=== PATIENT | male | born 1960 | race Caucasian/White ===

== ENCOUNTER 2016-11-26 08:02 | Emergency (ER) | payer MEDICAID, OTHER, SELFPAY ==
[2016-11-26 09:10] LABS: MEAN CORPUSCULAR HGB CONC 35.7 g/dl (32.0-36.5); MEAN CORPUSCULAR VOLUME 86.7 fl (80.0-96.0); RED CELL DISTRIBUTION WIDTH 12.4 % (11.5-14.5); WHITE BLOOD COUNT 8.2 K/mm3 (4.0-10.0)
[2016-11-26 09:51] LABS: ALBUMIN 4.2 GM/DL (3.2-5.2); ALBUMIN/GLOBULIN RATIO 1.27 (1.00-1.93); ALKALINE PHOSPHATASE 107 U/L (45-117); ALT/SGPT 62 U/L (12-78); ANION GAP 9 MEQ/L (8-16); AST/SGOT 26 U/L (15-37); BILIRUBIN,DIRECT 0.2 MG/DL (0.0-0.2); BILIRUBIN,TOTAL 0.8 MG/DL (0.2-1.0); BLOOD UREA NITROGEN 20 MG/DL (7-18); CALCIUM LEVEL 8.8 MG/DL (8.5-10.1); CARBON DIOXIDE LEVEL 23 MEQ/L (21-32); CHLORIDE LEVEL 109 MEQ/L (98-107); CREATININE FOR GFR 1.12 MG/DL (0.70-1.30); GLOMERULAR FILTRATION RATE > 60.0 (>56); GLUCOSE, FASTING 96 MG/DL (70-105); POTASSIUM SERUM 4.3 MEQ/L (3.5-5.1); SODIUM LEVEL 141 MEQ/L (136-145); TOTAL PROTEIN 7.5 GM/DL (6.4-8.2)
--- NOTE | 2016-11-26 11:24 | EDDOCDS ---
Physician Documentation [facility] Name: Jas Wilkerson Age: 56 yrs Sex: Male : 1960 Arrival Date: 11/26/2016 Time: 08:02 Bed 12 Private MD: Leslie Chan A Disposition: 11/26/16 10:57 Discharged to Home/Self Care. Impression: Anxiety disorder, unspecified, Weakness. - Condition is Stable. - Discharge Instructions: Fatigue, Generalized Anxiety Disorder, Weakness, [id number]. - Prescriptions for Xanax 0.5 mg Oral Tablet - take 1 tablet by ORAL route at bedtime As needed MDD: 3 tabs; 10 tablet. - Medication Reconciliation, Local Pharmacy Hours form. - Follow up: Leslie Chan; When: 1 - 2 days. Follow up: Ry Dodd MD; When: 4 - 5 days. - Problem is new. - Symptoms are unchanged. - Notes: follow up wiht blade dodd and rosey; please follow up with numbers given to you by Zainab. return if worsening symptoms Historical: - Allergies: no known allergies; - Home Meds: 1. metoprolol tartrate 25 mg Oral tab 1 tab 2 times per day (Last dose: 11/25/2016 20:00) 2. losartan 50 mg oral tab 1 tab 2 times per day (Last dose: 11/25/2016 20:00) 3. spironolactone 50 mg Oral tab 1 tab once daily (Last dose: 11/25/2016 08:00) - PMHx: Hypertension; - PSHx: none; - Social history: Smoking status: Patient states former smoker of tobacco. No barriers to communication noted, Speaks appropriately for age. - Family history: Not pertinent. - : The pt / caregiver states he / she is not on anticoagulants. Home medication list is obtained from the patient. - Exposure Risk Screening:: None identified. Vital Signs: 11/26 08:11 BP 145 / 83; Pulse 66; Resp 18; Temp 98.(TE); Pulse Ox 98% on R/A; Weight 117.93 kg / ml6 259.99 lbs (R); Height 6 ft. (182.88 cm); Pain 0/10; 09:30 Pulse 58 MON; Pulse Ox 96% ; kc3 09:31 BP 137 / 83 (auto/); kc3 10:02 BP 135 / 71 (auto/); kc3 10:03 Pulse 68 MON; Pulse Ox 95% ; kc3 10:31 BP 135 / 92 (auto/); kc3 10:32 Pulse 62 MON; Pulse Ox 97% ; kc3 11:21 BP 147 / 94; Pulse 62; Resp 18; Temp 97.7(O); Pulse Ox 95% on R/A; Pain 0/10; kc3 08:11 Body Mass Index 35.26 (117.93 kg, 182.88 cm) ml6 MDM: 08:24 Consult PFS/PSA/Digital Marketing Program Manager ordered. ml 08:24 Consult PFS/PSA/Digital Marketing Program Manager: Patient's case requires discussion with on-call ml Psychiatrist ordered. 08:24 PSA/PFS to call Nursing Assembler [employer] [place], to enter patient data on [place] Safe Act if patient ml involuntarily admitted or transferred for SI or HI ordered. 08:24 Videogame Tester/Pulse Ox/q 15 min VS ordered. ml 08:24 Confirm accurate psychiatric medication list and times of last dosage ordered. ml 08:24 Detain Pt Until Medically/PFS Cleared ordered. ml 08:24 IV Saline Lock ordered. ml 08:24 Rhythm Strip to chart ordered. ml 08:25 Acetaminophen Level Ordered. EDMS 08:25 Basic Metabolic Profile Ordered. EDMS 08:25 Complete Blood Count Ordered. EDMS 08:25 Ethyl Alcohol (ethanol) Ordered. EDMS 08:25 Liver Profile Ordered. EDMS 08:25 Salicylate Level Ordered. EDMS 08:25 Thyroid Stimulating Hormone Ordered. EDMS 08:25 ECG WITH READING ER PHYS+CARDIAG ordered. EDMS 08:27 Financial registration complete. mm15 08:34 CIP Ordered. EDMS 08:34 Troponin Ordered. EDMS 08:58 [facility] Payment Agreement was scanned into [employer] and attached to record. mm15 09:09 Consult PFS/PSA/Digital Marketing Program Manager: Patient's case requires discussion with on-call richard Psychiatrist complete. 10:05 Acetaminophen Level Reviewed. ml 10:05 Basic Metabolic Profile Reviewed. ml 10:05 Salicylate Level Reviewed. ml 10:05 Complete Blood Count Reviewed. ml 10:05 Ethyl Alcohol (ethanol) Reviewed. ml 10:05 Liver Profile Reviewed. ml 10:05 Thyroid Stimulating Hormone Reviewed. ml 10:05 CIP Reviewed. ml 10:05 Troponin Reviewed. ml 10:32 Consult PFS/PSA/Digital Marketing Program Manager complete. ca 11:13 PSA/PFS to call Nursing Assembler [place], to enter patient data on [place] Safe Act if patient kc3 involuntarily admitted or transferred for SI or HI complete. Signatures: Dispatcher [employer] EDMS Mayuri Aly MD MD ml Lars Singh,RN RN Marion Lay, PSA PSA ca Danilo Altamirano, RN RN ml6 Melissa Brewster mm15 Pamela Wilcox,IDALIA RN kc3 The chart was reviewed and I authenticate all verbal orders and agree with the evaluation and treatment provided.Corrections: (The following items were deleted from the chart) 10:46 08:25 DRUG EVAL TOXICOLOGY ED ONLY+LAB ordered. EDWA EDMS Attachments: 08:58 [facility] Payment Agreement mm15 MTDD
--- NOTE | 2016-11-26 11:24 | EDDOCDS ---
Nurse's Notes [facility] Name: Jsa Wilkerson Age: 56 yrs Sex: Male : 1960 Arrival Date: 11/26/2016 Time: 08:02 Bed 12 Private MD: Leslie Chan A Diagnosis: Anxiety disorder, unspecified;Weakness Presentation: 11/26 08:06 Presenting complaint: Patient states: states that he was seen at [place] ED for ? panic ml6 attack and started on spironolactone, losartan, and metoprolol, patient states also F/U with Dr. Tobias, stats continues to feel fatigued having trouble sleeping. Adult Sepsis Screening: Patient has new or worsening altered mentation (1 point). Patient's respiratory rate is less than 22. Systolic blood pressure is greater than 100. Patient has a qSOFA score of 0- Negative Sepsis Screen. Suicide/Homicide risk assessment- the patient denies having any suicidal and/or homicidal ideations and does not present with any other emotional, behavioral or mental health complaints. Status: Patient is not a service girl or dependent. Transition of care: patient was not received from another setting of care. 08:06 Acuity: URIAH Level 3 ml6 08:06 Method Of Arrival: Walkin/Carried/Asstd ml6 Triage Assessment: 08:11 General: Appears in no apparent distress, Behavior is appropriate for age, cooperative. ml6 Pain: Denies pain. HIV screening NA for this visit Offered previously. Neurological: Level of Consciousness is awake, alert, Oriented to person, place, time, Gear Keeper are equal bilaterally Moves all extremities. Gait is unsteady, Speech is normal, Facial symmetry appears normal, Pupils are PERRLA. Cardiovascular: No deficits noted. Capillary refill < 3 seconds is brisk in bilateral fingers toes. Respiratory: No deficits noted. Airway is patent Respiratory effort is even, unlabored. Historical: - Allergies: no known allergies; - Home Meds: 1. metoprolol tartrate 25 mg Oral tab 1 tab 2 times per day (Last dose: 11/25/2016 20:00) 2. losartan 50 mg oral tab 1 tab 2 times per day (Last dose: 11/25/2016 20:00) 3. spironolactone 50 mg Oral tab 1 tab once daily (Last dose: 11/25/2016 08:00) - PMHx: Hypertension; - PSHx: none; - Social history: Smoking status: Patient states former smoker of tobacco. No barriers to communication noted, Speaks appropriately for age. - Family history: Not pertinent. - : The pt / caregiver states he / she is not on anticoagulants. Home medication list is obtained from the patient. - Exposure Risk Screening:: None identified. Screenin:06 Screening information is obtained from the patient. Fall risk: No risks identified. jmk Assistance ADL's: requires no assistance with activities of daily living. Abuse/DV Screen: The patient / caregiver reports he/she is: not in a situation that causes fear, pain or injury. Nutritional screening: No deficits noted. Advance Directives: Currently, there is a health care proxy, graham deluna, daughter. Advance Directives: There is no active DNR order. There is no living will. There is no Power of Child Life Assistant. Advance directive information has not previously been placed in an [facility] medical record. home support is adequate. Assessment: 08:55 General: Appears skin warm and dry color satisfactory. moist pink oral mucosa. diffuse jmk weakness. strength is equal bilaterally. PALMA readilly.. 09:04 Neurological: No deficits noted. Level of Consciousness is awake, alert, Oriented to [facility] person, place, time. Cardiovascular: Capillary refill < 3 seconds Clubbing of nail beds is absent JVD is absent Heart tones S1 S2 present Rhythm is regular. Respiratory: No deficits noted. Airway is patent Respiratory effort is even, unlabored, Respiratory pattern is regular, Breath sounds are clear bilaterally. GI: Abdomen is flat, non- distended Bowel sounds present X 4 quads. 09:44 General: Appears in no apparent distress, Behavior is flat. Neurological: Level of kc3 Consciousness is awake, alert, obeys commands, Oriented to person, place, time. Cardiovascular: Rhythm is regular. Cardiovascular: Rhythm is sinus rhythm No ectopy. Respiratory: Respiratory effort is even, unlabored, Respiratory pattern is regular, symmetrical. Derm: Skin is pink, warm & dry. 10:03 General: This RN asked pt if feeling suicidal. Pt reported "I just feel depressed about kc3 life with all this stuff going on and I just don't care anymore. Just asking the question to myself of "what if . . ." Pt updated on plan of care. No complaints at this time. . 11:20 General: Appears in no apparent distress, comfortable, Behavior is appropriate for age, kc3 flat. Pain: Denies pain. Neurological: Level of Consciousness is awake, alert, obeys commands, Oriented to person, place, time. Cardiovascular: Rhythm is sinus rhythm. Respiratory: Respiratory effort is even, unlabored. Derm: Skin is pink, warm & dry. Social Work Consult: 10:38 Social Work Note: Pr was recently dx with cardiac problem and is seeing Dr Nelson at [facility]. Pt's PCP is Leslie Chan in [place]. Pt was recently started on several meds and has been feeling unwell, tired, not himself. Pt has no psychiatric hx. Denies SI, HI, A/VH. Denies any admissions to or any attempts at self harm. Pt states he has been feeling tired and dizzy since starting 3 new meds very recently. Encouraged pt to consult with his primary and corporate human resources manager. Also spoke with pt's daughter privately. She also expresses no concerns about pt and denies he has made any statements about harming self. She confirms that his lethargy seems to have started with the new medications. Pt says he has a stable home life, plenty of supportive family and a SO with whom pt resides. Provided pt with referral info for counseling services to help with stressors if he desires. At present, pt does not wish counseling. If discharged today his daughter will accompany him home. Vital Signs: 08:11 BP 145 / 83; Pulse 66; Resp 18; Temp 98.(TE); Pulse Ox 98% on R/A; Weight 117.93 kg ml6 (R); Height 6 ft. (182.88 cm); Pain 0/10; 09:30 Pulse 58 MON; Pulse Ox 96% ; kc3 09:31 BP 137 / 83 (auto/); kc3 10:02 BP 135 / 71 (auto/); kc3 10:03 Pulse 68 MON; Pulse Ox 95% ; kc3 10:31 BP 135 / 92 (auto/); kc3 10:32 Pulse 62 MON; Pulse Ox 97% ; kc3 11:21 BP 147 / 94; Pulse 62; Resp 18; Temp 97.7(O); Pulse Ox 95% on R/A; Pain 0/10; kc3 08:11 Body Mass Index 35.26 (117.93 kg, 182.88 cm) ml6 Vitals: 08:11 Log In Time: November 26, 2016 at 08:00. ml6 ED Course: 08:03 Patient visited by Breanna Arthur Reg. lg 08:03 Leslie Chan is Private Physician. lg 08:03 Patient name changed from Jas\\S\\\\S\\Wilkerson\\S\\ to Jas\\S\\ \\S\\Wilkerson. EDMS 08:03 Patient moved to Waiting lg 08:08 Triage Initiated ml6 08:12 Patient moved to 12 ml6 08:13 Mayuri Aly MD is Attending Physician. ml 08:13 Patient visited by Mayuri Aly MD. ml 08:58 [facility] Payment Agreement was scanned into [employer] and attached to record. mm15 09:06 The patient / caregiver is instructed regarding the plan of care and ED course. Cardiac jmk monitor on. Pulse ox on. 09:06 Inserted saline lock: 20 gauge in right antecubital area. jmk 09:08 Troponin Sent. jmk 09:08 CIP Sent. jmk 09:08 Acetaminophen Level Sent. jmk 09:08 Basic Metabolic Profile Sent. jmk 09:15 Patient visited by Trina Coleman PCA. ct3 09:34 Pamela Wilcox,RN is Primary Nurse. kc3 09:46 Patient visited by Pamela Wilcox,RN. kc3 10:05 Patient visited by Pamela Wilcox,RN. kc3 10:47 Patient visited by Nina Doan PCA. jlf 10:57 Leslie Chan is Referral Physician. ml 10:57 Ry Tobias MD is Referral Physician. ml 11:22 Discontinued IV lock intact, bleeding controlled, pressure dressing applied, No kc3 redness/swelling at site. No procedures done that require assistance. Order Results: Lab Order: Acetaminophen Level; SPEC'M 11/26/16 09:02 Test: ACETAMINOPHEN LEVEL; Value: < 2.0; Range: 10.0-30.0; Abnormal: Below low normal; Units: UG/ML; Status: F Lab Order: Basic Metabolic Profile; SPEC'M 11/26/16 09:02 Test: GLUCOSE, FASTING; Value: 96; Range: 70-105; Units: MG/DL; Status: F Test: BLOOD UREA NITROGEN; Value: 20; Range: 7-18; Abnormal: Above high normal; Units: MG/DL; Status: F Test: CREATININE FOR GFR; Value: 1.12; Range: 0.70-1.30; Units: MG/DL; Status: F Test: GLOMERULAR FILTRATION RATE; Value: > 60.0; Range: >56; Status: F Test: SODIUM LEVEL; Value: 141; Range: 136-145; Units: MEQ/L; Status: F Test: POTASSIUM SERUM; Value: 4.3; Range: 3.5-5.1; Units: MEQ/L; Status: F Test: CHLORIDE LEVEL; Value: 109; Range: 98-107; Abnormal: Above high normal; Units: MEQ/L; Status: F Test: CARBON DIOXIDE LEVEL; Value: 23; Range: 21-32; Units: MEQ/L; Status: F Test: ANION GAP; Value: 9; Range: 8-16; Units: MEQ/L; Status: F Test: CALCIUM LEVEL; Value: 8.8; Range: 8.5-10.1; Units: MG/DL; Status: F Test Note: ; Units are mL/min/1.73 m2 Chronic Kidney Disease Staging per NKF: Stage I & II GFR >=60 Normal to Mildly Decreased Stage III GFR 30-59 Moderately Decreased Stage IV GFR 15-29 Severely Decreased Stage V GFR <15 Very Little GFR Left ESRD GFR <15 on GARDE MANGER Lab Order: Complete Blood Count; SPEC'M 11/26/16 09:02 Test: WHITE BLOOD COUNT; Value: 8.2; Range: 4.0-10.0; Units: K/mm3; Status: F Test: RED BLOOD COUNT; Value: 5.19; Range: 4.30-6.10; Units: M/mm3; Status: F Test: HEMOGLOBIN; Value: 16.1; Range: 14.0-18.0; Units: g/dl; Status: F Test: HEMATOCRIT; Value: 45.0; Range: 42.0-52.0; Units: %; Status: F Test: MEAN CORPUSCULAR VOLUME; Value: 86.7; Range: 80.0-96.0; Units: fl; Status: F Test: MEAN CORPUSCULAR HEMOGLOBIN; Value: 31.0; Range: 27.0-33.0; Units: pg; Status: F Test: MEAN CORPUSCULAR HGB CONC; Value: 35.7; Range: 32.0-36.5; Units: g/dl; Status: F Test: RED CELL DISTRIBUTION WIDTH; Value: 12.4; Range: 11.5-14.5; Units: %; Status: F Test: PLATELET COUNT, AUTOMATED; Value: 241; Range: 150-450; Units: k/mm3; Status: F Lab Order: Ethyl Alcohol (ethanol); 11/26/16 09: Test: ETHYL ALCOHOL (ETHANOL); Value: < 0.003; Range: 0.000-0.010; Units: %; Status: F Lab Order: Liver Profile; 11/26/16 09: Test: AST/SGOT; Value: 26; Range: 15-37; Units: U/L; Status: F Test: ALT/SGPT; Value: 62; Range: 12-78; Units: U/L; Status: F Test: ALKALINE PHOSPHATASE; Value: 107; Range: 45-117; Units: U/L; Status: F Test: BILIRUBIN,TOTAL; Value: 0.8; Range: 0.2-1.0; Units: MG/DL; Status: F Test: BILIRUBIN,DIRECT; Value: 0.2; Range: 0.0-0.2; Units: MG/DL; Status: F Test: TOTAL PROTEIN; Value: 7.5; Range: 6.4-8.2; Units: GM/DL; Status: F Test: ALBUMIN; Value: 4.2; Range: 3.2-5.2; Units: GM/DL; Status: F Test: ALBUMIN/GLOBULIN RATIO; Value: 1.27; Range: 1.00-1.93; Status: F Lab Order: Salicylate Level; 11/26/16 09:02 Test: SALICYLATE LEVEL; Value: < 1.7; Range: 5.0-30.0; Abnormal: Below low normal; Units: MG/DL; Status: F Lab Order: Thyroid Stimulating Hormone; 11/26/16 09:02 Test: THYROID STIMULATING HORMONE; Value: 0.733; Range: 0.358-3.740; Units: uIU/ML; Status: F Lab Order: CIP; DIEGO11/26/16 08:51 Test: CPK CREATINE PHOSPHOKINASE; Value: 75; Range: 39-308; Units: U/L; Status: F Test: CK-MB VALUE MASS; Value: 1.6; Range: 0.0-3.6; Units: NG/ML; Status: F Test: MB/CK RELATIVE INDEX; Value: 2.13; Range: < OR =4; Status: F Test Note: ; DIAGNOSIS CRITERIA MMB ng/ml Relative Index (RI) NON-AMI < or = 5 N/A [place]ES ZONE > 5 < or = 4 AMI > 5 > 4 Lab Order: Troponin; 11/26/16 08:51 Test: TROPONIN I; Value: < 0.02; Range: < 0.10; Units: NG/ML; Status: F Test Note: ; Troponin I Reference Interval for Zirtual LOCI: 99th Percentile= 0.00-0.045 ng/ml Risk Stratification: <= 0.10 ng/ml Decreased Risk for Adverse Clinical Events. 0.10-1.50 ng/ml Increased Risk for Adverse Clinical Events. Evaluation of additional criterion and/or repeat testing in 2-6 hours is suggested to rule out myocardial damage. >= 1.50 ng/ml Indicative of Myocardial Injury. Outcome: 10:57 Discharge ordered by Provider. 11:21 Discharge Assessment: Patient awake, alert and oriented x 3. No cognitive and/or kc3 functional deficits noted. Patient verbalized understanding of disposition instructions. patient administered narcotics - no. The following High Risk Discharge criteria are identified: None. Discharged to home ambulatory. Condition: stable. Discharge instructions given to patient, Instructed on discharge instructions, follow up and referral plans. medication usage, Demonstrated understanding of instructions, medications, Pt was receptive of discharge instructions/ teaching. Prescriptions given X 1. No special radiology studies were completed. Property :Personal belongings accompany Pt. 11:22 Patient left the ED. kc3 Signatures: Dispatcher [employer] EDMS Mayuri Aly MD MD ml Knapp, Jean, RN RN Marion Lay, PSA PSA ca Breanna Arthur, Reg Reg lg Adarsh, Danilo, RN RN ml6 [place], Trina, RAWHIDE TRIMMER RAWHIDE TRIMMER ct3 Melissa Brewster mm15 Nina Doan, RAWHIDE TRIMMER RAWHIDE TRIMMER jlf Brenden,Pamela,RN RN kc3 MTDD
--- NOTE | 2016-11-26 17:28 | ECGEPIP ---
Stationary ECG Study [facility] - ED Test Date: 2016-11-26 Pat Name: STEFANIE SNOW Department: Room: - Gender: M Hot Man: bridget : 1960 Requested By: Mayuri Aly Order Number: [id number] Reading MD: Valdemar Tobin Measurements Intervals [place] Rate: 60 P: 40 MI: 178 QRS: 31 QRSD: 116 T: 3 QT: 372 QTc: 373 Interpretive Statements SINUS RHYTHM INFERIOR MYOCARDIAL INFARCTION, PROBABLY OLD NONSPECIFIC T WAVE Abnormality NO PRIORS Electronically Signed On 11-26-2016 17:27:59 EST by Valdemar Tobin
--- NOTE | 2016-11-28 12:23 | EDDOCDS ---
Nurse's Notes [facility] Name: Jas Wilkerson Age: 56 yrs Sex: Male : 1960 Arrival Date: 11/26/2016 Time: 08:02 Bed 12 Private MD: Leslie Chan A Diagnosis: Anxiety disorder, unspecified;Weakness Presentation: 11/26 08:06 Presenting complaint: Patient states: states that he was seen at [facility] for ? panic ml6 attack and started on spironolactone, losartan, and metoprolol, patient states also F/U with Dr. Tobais, stats continues to feel fatigued having trouble sleeping. Adult Sepsis Screening: Patient has new or worsening altered mentation (1 point). Patient's respiratory rate is less than 22. Systolic blood pressure is greater than 100. Patient has a qSOFA score of 0- Negative Sepsis Screen. Suicide/Homicide risk assessment- the patient denies having any suicidal and/or homicidal ideations and does not present with any other emotional, behavioral or mental health complaints. Status: Patient is not a product manager financial services or dependent. Transition of care: patient was not received from another setting of care. 08:06 Acuity: URIAH Level 3 ml6 08:06 Method Of Arrival: Walkin/Carried/Asstd ml6 Triage Assessment: 08:11 General: Appears in no apparent distress, Behavior is appropriate for age, cooperative. ml6 Pain: Denies pain. HIV screening NA for this visit Offered previously. Neurological: Level of Consciousness is awake, alert, Oriented to person, place, time, Hydropress Operator are equal bilaterally Moves all extremities. Gait is unsteady, Speech is normal, Facial symmetry appears normal, Pupils are PERRLA. Cardiovascular: No deficits noted. Capillary refill < 3 seconds is brisk in bilateral fingers toes. Respiratory: No deficits noted. Airway is patent Respiratory effort is even, unlabored. Historical: - Allergies: no known allergies; - Home Meds: 1. metoprolol tartrate 25 mg Oral tab 1 tab 2 times per day (Last dose: 11/25/2016 20:00) 2. losartan 50 mg oral tab 1 tab 2 times per day (Last dose: 11/25/2016 20:00) 3. spironolactone 50 mg Oral tab 1 tab once daily (Last dose: 11/25/2016 08:00) - PMHx: Hypertension; - PSHx: none; - Social history: Smoking status: Patient states former smoker of tobacco. No barriers to communication noted, Speaks appropriately for age. - Family history: Not pertinent. - : The pt / caregiver states he / she is not on anticoagulants. Home medication list is obtained from the patient. - Exposure Risk Screening:: None identified. Screenin:06 Screening information is obtained from the patient. Fall risk: No risks identified. jmk Assistance ADL's: requires no assistance with activities of daily living. Abuse/DV Screen: The patient / caregiver reports he/she is: not in a situation that causes fear, pain or injury. Nutritional screening: No deficits noted. Advance Directives: Currently, there is a health care proxy, graham deluna, daughter. Advance Directives: There is no active DNR order. There is no living will. There is no Power of Senior Mobile Application Developer. Advance directive information has not previously been placed in an [facility] medical record. home support is adequate. Assessment: 08:55 General: Appears skin warm and dry color satisfactory. moist pink oral mucosa. diffuse jmk weakness. strength is equal bilaterally. PALMA readilly.. 09:04 Neurological: No deficits noted. Level of Consciousness is awake, alert, Oriented to [facility] person, place, time. Cardiovascular: Capillary refill < 3 seconds Clubbing of nail beds is absent JVD is absent Heart tones S1 S2 present Rhythm is regular. Respiratory: No deficits noted. Airway is patent Respiratory effort is even, unlabored, Respiratory pattern is regular, Breath sounds are clear bilaterally. GI: Abdomen is flat, non- distended Bowel sounds present X 4 quads. 09:44 General: Appears in no apparent distress, Behavior is flat. Neurological: Level of kc3 Consciousness is awake, alert, obeys commands, Oriented to person, place, time. Cardiovascular: Rhythm is regular. Cardiovascular: Rhythm is sinus rhythm No ectopy. Respiratory: Respiratory effort is even, unlabored, Respiratory pattern is regular, symmetrical. Derm: Skin is pink, warm & dry. 10:03 General: This RN asked pt if feeling suicidal. Pt reported "I just feel depressed about kc3 life with all this stuff going on and I just don't care anymore. Just asking the question to myself of "what if . . ." Pt updated on plan of care. No complaints at this time. . 11:20 General: Appears in no apparent distress, comfortable, Behavior is appropriate for age, kc3 flat. Pain: Denies pain. Neurological: Level of Consciousness is awake, alert, obeys commands, Oriented to person, place, time. Cardiovascular: Rhythm is sinus rhythm. Respiratory: Respiratory effort is even, unlabored. Derm: Skin is pink, warm & dry. Social Work Consult: 10:38 Social Work Note: Pr was recently dx with cardiac problem and is seeing Dr Nelson at [facility]. Pt's PCP is Leslie Chan in [place]. Pt was recently started on several meds and has been feeling unwell, tired, not himself. Pt has no psychiatric hx. Denies SI, HI, A/VH. Denies any admissions to or any attempts at self harm. Pt states he has been feeling tired and dizzy since starting 3 new meds very recently. Encouraged pt to consult with his primary and acid loader. Also spoke with pt's daughter privately. She also expresses no concerns about pt and denies he has made any statements about harming self. She confirms that his lethargy seems to have started with the new medications. Pt says he has a stable home life, plenty of supportive family and a SO with whom pt resides. Provided pt with referral info for counseling services to help with stressors if he desires. At present, pt does not wish counseling. If discharged today his daughter will accompany him home. Vital Signs: 08:11 BP 145 / 83; Pulse 66; Resp 18; Temp 98.(TE); Pulse Ox 98% on R/A; Weight 117.93 kg ml6 (R); Height 6 ft. (182.88 cm); Pain 0/10; 09:30 Pulse 58 MON; Pulse Ox 96% ; kc3 09:31 BP 137 / 83 (auto/); kc3 10:02 BP 135 / 71 (auto/); kc3 10:03 Pulse 68 MON; Pulse Ox 95% ; kc3 10:31 BP 135 / 92 (auto/); kc3 10:32 Pulse 62 MON; Pulse Ox 97% ; kc3 11:21 BP 147 / 94; Pulse 62; Resp 18; Temp 97.7(O); Pulse Ox 95% on R/A; Pain 0/10; kc3 08:11 Body Mass Index 35.26 (117.93 kg, 182.88 cm) ml6 Vitals: 08:11 Log In Time: November 26, 2016 at 08:00. ml6 ED Course: 08:03 Patient visited by Breanna Arthur Reg. lg 08:03 Leslie Chan is Private Physician. lg 08:03 Patient name changed from Jas\\S\\\\S\\Wilkerson\\S\\ to Jas\\S\\ \\S\\Wilkerson. EDMS 08:03 Patient moved to Waiting lg 08:08 Triage Initiated ml6 08:12 Patient moved to 12 ml6 08:13 Mayuri Aly MD is Attending Physician. ml 08:13 Patient visited by Mayuri Aly MD. ml 08:58 [facility] Payment Agreement was scanned into [employer] and attached to record. mm15 09:06 The patient / caregiver is instructed regarding the plan of care and ED course. Cardiac jmk monitor on. Pulse ox on. 09:06 Inserted saline lock: 20 gauge in right antecubital area. jmk 09:08 Troponin Sent. jmk 09:08 CIP Sent. jmk 09:08 Acetaminophen Level Sent. jmk 09:08 Basic Metabolic Profile Sent. jmk 09:15 Patient visited by Trina Coleman PCA. ct3 09:34 Pamela Wilcox,RN is Primary Nurse. kc3 09:46 Patient visited by Pamela Wilcox,RN. kc3 10:05 Patient visited by Pamela Wilcox,RN. kc3 10:47 Patient visited by Nina Doan PCA. jlf 10:57 Leslie Chan is Referral Physician. ml 10:57 Ry Tobias MD is Referral Physician. ml 11:22 Discontinued IV lock intact, bleeding controlled, pressure dressing applied, No kc3 redness/swelling at site. No procedures done that require assistance. 14:29 ECG/EKG was scanned into [employer] and attached to record. gb 17:50 EKG-ADULT Returned. EDMS 11/27 12:44 T-Sheet-- Draft Copy was scanned into [employer] and attached to record. gb Order Results: Lab Order: Acetaminophen Level; SPEC'M 11/26/16 09:02 Test: ACETAMINOPHEN LEVEL; Value: < 2.0; Range: 10.0-30.0; Abnormal: Below low normal; Units: UG/ML; Status: F Lab Order: Basic Metabolic Profile; 11/26/16 09:02 Test: GLUCOSE, FASTING; Value: 96; Range: 70-105; Units: MG/DL; Status: F Test: BLOOD UREA NITROGEN; Value: 20; Range: 7-18; Abnormal: Above high normal; Units: MG/DL; Status: F Test: CREATININE FOR GFR; Value: 1.12; Range: 0.70-1.30; Units: MG/DL; Status: F Test: GLOMERULAR FILTRATION RATE; Value: > 60.0; Range: >56; Status: F Test: SODIUM LEVEL; Value: 141; Range: 136-145; Units: MEQ/L; Status: F Test: POTASSIUM SERUM; Value: 4.3; Range: 3.5-5.1; Units: MEQ/L; Status: F Test: CHLORIDE LEVEL; Value: 109; Range: 98-107; Abnormal: Above high normal; Units: MEQ/L; Status: F Test: CARBON DIOXIDE LEVEL; Value: 23; Range: 21-32; Units: MEQ/L; Status: F Test: ANION GAP; Value: 9; Range: 8-16; Units: MEQ/L; Status: F Test: CALCIUM LEVEL; Value: 8.8; Range: 8.5-10.1; Units: MG/DL; Status: F Test Note: ; Units are mL/min/1.73 m2 Chronic Kidney Disease Staging per NKF: Stage I & II GFR >=60 Normal to Mildly Decreased Stage III GFR 30-59 Moderately Decreased Stage IV GFR 15-29 Severely Decreased Stage V GFR <15 Very Little GFR Left ESRD GFR <15 on LEARNING DISABILITIES TEACHER Lab Order: Complete Blood Count; 11/26/16 09:02 Test: WHITE BLOOD COUNT; Value: 8.2; Range: 4.0-10.0; Units: K/mm3; Status: F Test: RED BLOOD COUNT; Value: 5.19; Range: 4.30-6.10; Units: M/mm3; Status: F Test: HEMOGLOBIN; Value: 16.1; Range: 14.0-18.0; Units: g/dl; Status: F Test: HEMATOCRIT; Value: 45.0; Range: 42.0-52.0; Units: %; Status: F Test: MEAN CORPUSCULAR VOLUME; Value: 86.7; Range: 80.0-96.0; Units: fl; Status: F Test: MEAN CORPUSCULAR HEMOGLOBIN; Value: 31.0; Range: 27.0-33.0; Units: pg; Status: F Test: MEAN CORPUSCULAR HGB CONC; Value: 35.7; Range: 32.0-36.5; Units: g/dl; Status: F Test: RED CELL DISTRIBUTION WIDTH; Value: 12.4; Range: 11.5-14.5; Units: %; Status: F Test: PLATELET COUNT, AUTOMATED; Value: 241; Range: 150-450; Units: k/mm3; Status: F Lab Order: Ethyl Alcohol (ethanol); SPEC' 11/26/16 09:02 Test: ETHYL ALCOHOL (ETHANOL); Value: < 0.003; Range: 0.000-0.010; Units: %; Status: F Lab Order: Liver Profile; SPEC' 11/26/16 09:02 Test: AST/SGOT; Value: 26; Range: 15-37; Units: U/L; Status: F Test: ALT/SGPT; Value: 62; Range: 12-78; Units: U/L; Status: F Test: ALKALINE PHOSPHATASE; Value: 107; Range: 45-117; Units: U/L; Status: F Test: BILIRUBIN,TOTAL; Value: 0.8; Range: 0.2-1.0; Units: MG/DL; Status: F Test: BILIRUBIN,DIRECT; Value: 0.2; Range: 0.0-0.2; Units: MG/DL; Status: F Test: TOTAL PROTEIN; Value: 7.5; Range: 6.4-8.2; Units: GM/DL; Status: F Test: ALBUMIN; Value: 4.2; Range: 3.2-5.2; Units: GM/DL; Status: F Test: ALBUMIN/GLOBULIN RATIO; Value: 1.27; Range: 1.00-1.93; Status: F Lab Order: Salicylate Level; SPEC'11/26/16 09:02 Test: SALICYLATE LEVEL; Value: < 1.7; Range: 5.0-30.0; Abnormal: Below low normal; Units: MG/DL; Status: F Lab Order: Thyroid Stimulating Hormone; 11/26/16 09:02 Test: THYROID STIMULATING HORMONE; Value: 0.733; Range: 0.358-3.740; Units: uIU/ML; Status: F Lab Order: CIP; 11/26/16 08:51 Test: CPK CREATINE PHOSPHOKINASE; Value: 75; Range: 39-308; Units: U/L; Status: F Test: CK-MB VALUE MASS; Value: 1.6; Range: 0.0-3.6; Units: NG/ML; Status: F Test: MB/CK RELATIVE INDEX; Value: 2.13; Range: < OR =4; Status: F Test Note: ; DIAGNOSIS CRITERIA MMB ng/ml Relative Index (RI) NON-AMI < or = 5 N/A PALOMARES ZONE > 5 < or = 4 AMI > 5 > 4 Lab Order: Troponin; 11/26/16 08:51 Test: TROPONIN I; Value: < 0.02; Range: < 0.10; Units: NG/ML; Status: F Test Note: ; Troponin I Reference Interval for [place] LOCI: 99th Percentile= 0.00-0.045 ng/ml Risk Stratification: <= 0.10 ng/ml Decreased Risk for Adverse Clinical Events. 0.10-1.50 ng/ml Increased Risk for Adverse Clinical Events. Evaluation of additional criterion and/or repeat testing in 2-6 hours is suggested to rule out myocardial damage. >= 1.50 ng/ml Indicative of Myocardial Injury. Radiology Order: EKG-ADULT Test: EKG-ADULT REASON FOR EXAMINATION: weakness; Stationary ECG Study; [facility] - ED; ; Test Date: 2016-11-26; Pat Name: JAS WILKERSON Department:; Room: -; Gender: M Ironer: bridget; : 1960 Requested By: Mayuri Aly; Order Number: [id number] Steve MD: Valdemar Tobin; Measurements; Intervals [place]; Rate: 60 P: 40; SD: 178 QRS: 31; QRSD: 116 T: 3; QT: 372; QTc: 373; Interpretive Statements; SINUS RHYTHM; INFERIOR MYOCARDIAL INFARCTION, PROBABLY OLD; NONSPECIFIC T WAVE Abnormality; NO PRIORS; Electronically Signed On 11-26-2016 17:27:59 EST by Valdemar Tobin; Outcome: 11/26 10:57 Discharge ordered by Provider. 11:21 Discharge Assessment: Patient awake, alert and oriented x 3. No cognitive and/or kc3 functional deficits noted. Patient verbalized understanding of disposition instructions. patient administered narcotics - no. The following High Risk Discharge criteria are identified: None. Discharged to home ambulatory. Condition: stable. Discharge instructions given to patient, Instructed on discharge instructions, follow up and referral plans. medication usage, Demonstrated understanding of instructions, medications, Pt was receptive of discharge instructions/ teaching. Prescriptions given X 1. No special radiology studies were completed. Property :Personal belongings accompany Pt. 11:22 Patient left the ED. kc3 Signatures: Dispatcher [employer] EDMS Mayuri Aly MD MD ml Knapp, Jean,RN RN nirmalak Marion Duran, PSA PSA ca Isabela, Gia, Reg Reg gb Breanna Arthur, Reg Reg lg Danilo Altamirano, RN RN ml6 Trina Coleman, MONORAIL CHARGER OPERATOR MONORAIL CHARGER OPERATOR ct3 Melissa Brewster mm15 Nina Doan, MONORAIL CHARGER OPERATOR MONORAIL CHARGER OPERATOR jlf Pamela Wilcox,RN RN kc3 Chart Complete MTDD
--- NOTE | 2016-11-28 12:23 | EDDOCDS ---
Physician Documentation [facility] Name: Jas Wilkerson Age: 56 yrs Sex: Male : 1960 Arrival Date: 11/26/2016 Time: 08:02 Bed 12 Private MD: Leslie Chan A Disposition: 11/26/16 10:57 Discharged to Home/Self Care. Impression: Anxiety disorder, unspecified, Weakness. - Condition is Stable. - Discharge Instructions: Fatigue, Generalized Anxiety Disorder, Weakness, [id number]. - Prescriptions for Xanax 0.5 mg Oral Tablet - take 1 tablet by ORAL route at bedtime As needed MDD: 3 tabs; 10 tablet. - Medication Reconciliation, Local Pharmacy Hours form. - Follow up: Leslie Chan; When: 1 - 2 days. Follow up: Ry Dodd MD; When: 4 - 5 days. - Problem is new. - Symptoms are unchanged. - Notes: follow up wiht blade dodd and rosey; please follow up with numbers given to you by Zainab. return if worsening symptoms Historical: - Allergies: no known allergies; - Home Meds: 1. metoprolol tartrate 25 mg Oral tab 1 tab 2 times per day (Last dose: 11/25/2016 20:00) 2. losartan 50 mg oral tab 1 tab 2 times per day (Last dose: 11/25/2016 20:00) 3. spironolactone 50 mg Oral tab 1 tab once daily (Last dose: 11/25/2016 08:00) - PMHx: Hypertension; - PSHx: none; - Social history: Smoking status: Patient states former smoker of tobacco. No barriers to communication noted, Speaks appropriately for age. - Family history: Not pertinent. - : The pt / caregiver states he / she is not on anticoagulants. Home medication list is obtained from the patient. - Exposure Risk Screening:: None identified. Vital Signs: 11/26 08:11 BP 145 / 83; Pulse 66; Resp 18; Temp 98.(TE); Pulse Ox 98% on R/A; Weight 117.93 kg / ml6 259.99 lbs (R); Height 6 ft. (182.88 cm); Pain 0/10; 09:30 Pulse 58 MON; Pulse Ox 96% ; kc3 09:31 BP 137 / 83 (auto/); kc3 10:02 BP 135 / 71 (auto/); kc3 10:03 Pulse 68 MON; Pulse Ox 95% ; kc3 10:31 BP 135 / 92 (auto/); kc3 10:32 Pulse 62 MON; Pulse Ox 97% ; kc3 11:21 BP 147 / 94; Pulse 62; Resp 18; Temp 97.7(O); Pulse Ox 95% on R/A; Pain 0/10; kc3 08:11 Body Mass Index 35.26 (117.93 kg, 182.88 cm) ml6 MDM: 08:24 Consult PFS/PSA/Research Geologist ordered. ml 08:24 Consult PFS/PSA/Research Geologist: Patient's case requires discussion with on-call ml Psychiatrist ordered. 08:24 PSA/PFS to call Nursing Drawer Liner, to enter patient data on [place] Safe Act if patient ml involuntarily admitted or transferred for SI or HI ordered. 08:24 Paper Goods Machine Operator/Pulse Ox/q 15 min VS ordered. ml 08:24 Confirm accurate psychiatric medication list and times of last dosage ordered. ml 08:24 Detain Pt Until Medically/PFS Cleared ordered. ml 08:24 IV Saline Lock ordered. ml 08:24 Rhythm Strip to chart ordered. ml 08:25 Acetaminophen Level Ordered. EDMS 08:25 Basic Metabolic Profile Ordered. EDMS 08:25 Complete Blood Count Ordered. EDMS 08:25 Ethyl Alcohol (ethanol) Ordered. EDMS 08:25 Liver Profile Ordered. EDMS 08:25 Salicylate Level Ordered. EDMS 08:25 Thyroid Stimulating Hormone Ordered. EDMS 08:25 ECG WITH READING ER PHYS+CARDIAG ordered. EDMS 08:27 Financial registration complete. mm15 08:34 CIP Ordered. EDMS 08:34 Troponin Ordered. EDMS 08:58 [facility] Payment Agreement was scanned into [employer] and attached to record. mm15 09:09 Consult PFS/PSA/Research Geologist: Patient's case requires discussion with on-call richard Psychiatrist complete. 10:05 Acetaminophen Level Reviewed. ml 10:05 Basic Metabolic Profile Reviewed. ml 10:05 Salicylate Level Reviewed. ml 10:05 Complete Blood Count Reviewed. ml 10:05 Ethyl Alcohol (ethanol) Reviewed. ml 10:05 Liver Profile Reviewed. ml 10:05 Thyroid Stimulating Hormone Reviewed. ml 10:05 CIP Reviewed. ml 10:05 Troponin Reviewed. ml 10:32 Consult PFS/PSA/Research Geologist complete. ca 11:13 PSA/PFS to call Nursing Drawer Liner, to enter patient data on [place] Safe Act if patient kc3 involuntarily admitted or transferred for SI or HI complete. 14:29 ECG/EKG was scanned into [employer] and attached to record. gb 11/27 12:44 T-Sheet-- Draft Copy was scanned into [employer] and attached to record. gb Signatures: Dispatcher [employer] EDMS Mayuri Aly MD MD ml Knapp, Jean,RN RN Marion Lay, PSA PSA ca Gia Mar, Reg Reg gb Danilo Altamirano, RN RN ml6 Melissa Brewster mm15 Pamela Wilcox,IDALIA RN kc3 The chart was reviewed and I authenticate all verbal orders and agree with the evaluation and treatment provided.Corrections: (The following items were deleted from the chart) 11/26 10:46 08:25 DRUG EVAL TOXICOLOGY ED ONLY+LAB ordered. EDMS EDMS Attachments: 08:58 [facility] Payment Agreement mm15 14:29 ECG/EKG gb 11/27 12:44 T-Sheet-- Draft Copy gb Chart Complete MTDD
--- NOTE | 2016-11-28 12:23 | EDDOCDS ---
Physician Documentation [facility] Name: Jas Wilkerson Age: 56 yrs Sex: Male : 1960 Arrival Date: 11/26/2016 Time: 08:02 Bed 12 Private MD: Leslie Chan A Disposition: 11/26/16 10:57 Discharged to Home/Self Care. Impression: Anxiety disorder, unspecified, Weakness. - Condition is Stable. - Discharge Instructions: Fatigue, Generalized Anxiety Disorder, Weakness, Gfdz-wd-Wfej. - Prescriptions for Xanax 0.5 mg Oral Tablet - take 1 tablet by ORAL route at bedtime As needed MDD: 3 tabs; 10 tablet. - Medication Reconciliation, Local Pharmacy Hours form. - Follow up: Leslie Chan; When: 1 - 2 days. Follow up: Ry Dodd MD; When: 4 - 5 days. - Problem is new. - Symptoms are unchanged. - Notes: follow up wiht blade dodd and rosey; please follow up with numbers given to you by Zainab. return if worsening symptoms Historical: - Allergies: no known allergies; - Home Meds: 1. metoprolol tartrate 25 mg Oral tab 1 tab 2 times per day (Last dose: 11/25/2016 20:00) 2. losartan 50 mg oral tab 1 tab 2 times per day (Last dose: 11/25/2016 20:00) 3. spironolactone 50 mg Oral tab 1 tab once daily (Last dose: 11/25/2016 08:00) - PMHx: Hypertension; - PSHx: none; - Social history: Smoking status: Patient states former smoker of tobacco. No barriers to communication noted, Speaks appropriately for age. - Family history: Not pertinent. - : The pt / caregiver states he / she is not on anticoagulants. Home medication list is obtained from the patient. - Exposure Risk Screening:: None identified. Vital Signs: 11/26 08:11 BP 145 / 83; Pulse 66; Resp 18; Temp 98.(TE); Pulse Ox 98% on R/A; Weight 117.93 kg / ml6 259.99 lbs (R); Height 6 ft. (182.88 cm); Pain 0/10; 09:30 Pulse 58 MON; Pulse Ox 96% ; kc3 09:31 BP 137 / 83 (auto/); kc3 10:02 BP 135 / 71 (auto/); kc3 10:03 Pulse 68 MON; Pulse Ox 95% ; kc3 10:31 BP 135 / 92 (auto/); kc3 10:32 Pulse 62 MON; Pulse Ox 97% ; kc3 11:21 BP 147 / 94; Pulse 62; Resp 18; Temp 97.7(O); Pulse Ox 95% on R/A; Pain 0/10; kc3 08:11 Body Mass Index 35.26 (117.93 kg, 182.88 cm) ml6 MDM: 08:24 Consult PFS/PSA/Manager Story ordered. ml 08:24 Consult PFS/PSA/Manager Story: Patient's case requires discussion with on-call ml Psychiatrist ordered. 08:24 PSA/PFS to call Nursing Food Service Utility Worker, to enter patient data on [place] Safe Act if patient ml involuntarily admitted or transferred for SI or HI ordered. 08:24 Hop Weigher/Pulse Ox/q 15 min VS ordered. ml 08:24 Confirm accurate psychiatric medication list and times of last dosage ordered. ml 08:24 Detain Pt Until Medically/PFS Cleared ordered. ml 08:24 IV Saline Lock ordered. ml 08:24 Rhythm Strip to chart ordered. ml 08:25 Acetaminophen Level Ordered. EDMS 08:25 Basic Metabolic Profile Ordered. EDMS 08:25 Complete Blood Count Ordered. EDMS 08:25 Ethyl Alcohol (ethanol) Ordered. EDMS 08:25 Liver Profile Ordered. EDMS 08:25 Salicylate Level Ordered. EDMS 08:25 Thyroid Stimulating Hormone Ordered. EDMS 08:25 ECG WITH READING ER PHYS+CARDIAG ordered. EDMS 08:27 Financial registration complete. mm15 08:34 CIP Ordered. EDMS 08:34 Troponin Ordered. EDMS 08:58 [facility] Payment Agreement was scanned into [employer] and attached to record. mm15 09:09 Consult PFS/PSA/Manager Story: Patient's case requires discussion with on-call richard Psychiatrist complete. 10:05 Acetaminophen Level Reviewed. ml 10:05 Basic Metabolic Profile Reviewed. ml 10:05 Salicylate Level Reviewed. ml 10:05 Complete Blood Count Reviewed. ml 10:05 Ethyl Alcohol (ethanol) Reviewed. ml 10:05 Liver Profile Reviewed. ml 10:05 Thyroid Stimulating Hormone Reviewed. ml 10:05 CIP Reviewed. ml 10:05 Troponin Reviewed. ml 10:32 Consult PFS/PSA/Manager Story complete. ca 11:13 PSA/PFS to call Nursing Food Service Utility Worker, to enter patient data [place] if patient kc3 involuntarily admitted or transferred for SI or HI complete. 14:29 ECG/EKG was scanned into [employer] and attached to record. gb 11/27 12:44 T-Sheet-- Draft Copy was scanned into [employer] and attached to record. gb Signatures: Dispatcher [employer] EDMS Mayuri Aly MD MD ml Knapp, Jean,RN RN Marion Lay, PSA PSA ca Gia Mar, Reg Reg gb Danilo Altamirano, RN RN ml6 Melissa Brewster mm15 Pamela Wilcox,IDALIA RN kc3 The chart was reviewed and I authenticate all verbal orders and agree with the evaluation and treatment provided.Corrections: (The following items were deleted from the chart) 11/26 10:46 08:25 DRUG EVAL TOXICOLOGY ED ONLY+LAB ordered. EDMS EDMS Attachments: 08:58 [facility] Payment Agreement mm15 14:29 ECG/EKG gb 11/27 12:44 T-Sheet-- Draft Copy gb Chart Complete MTDD
== END 2016-11-26 11:22 | disposition home or self-care (01) ==
LOC: M ED 08:02
DX: F41.9 Anxiety disorder, unspecified (principal); R53.1 Weakness; I10 Essential (primary) hypertension; Z87.891 Personal history of nicotine dependence; Z79.899 Other long term (current) drug therapy
CPT/HCPCS: 36415; 80048; 80076; 82550; 82553; 84443; 85027; 93005; 93041; 99284; G0480